=== PATIENT | male | born 2000 | race Caucasian/White ===

== ENCOUNTER 2021-04-06 01:19 | Emergency (ER) | payer OTHER ==
[~2021-04-06] VITALS: Ht 188 cm; Wt 75.0 kg
[2021-04-06 01:30] VITALS: TEMP 97.7
[2021-04-06 02:22] LABS: COLLECTION METHOD CLEAN CATCH
[2021-04-06 02:29] LABS: PH 6 (5-8); SQUAMOUS EPITHELIAL None Seen /hpf; URINE APPEARANCE Clear; URINE BACTERIA None Seen /hpf; URINE BILIRUBIN Negative (NEGATIVE); URINE BLOOD Negative (NEGATIVE); URINE COLOR Colorless; URINE GLUCOSE Negative (NEGATIVE); URINE KETONE Negative (NEGATIVE); URINE LEUKOCYTE ESTERASE Negative (NEGATIVE); URINE NITRATE Negative (NEGATIVE); URINE PROTEIN(semi-quant) Negative (NEGATIVE); URINE RBC 0-2 /hpf; URINE UROBILINOGEN Negative (NEGATIVE); URINE WBC None Seen /hpf
[2021-04-06] MEDS ORDERED: MOTRIN 600600 MG/TAB PO (02:52)
[2021-04-06] MEDS ORDERED: ZOFRAN ODT4 MG PO (02:52)
[2021-04-06] MEDS ORDERED: DOXYCYCLINE 10100 MG PO (02:52)
[2021-04-06] MEDS ORDERED: TYLENOL 325MG325 MG PO (02:52)
[2021-04-06 03:20] VITALS: BP 130/68; PULSE 80
== END 2021-04-06 03:32 | disposition home or self-care (01) ==
LOC: COL.ER 01:19
PROVIDERS: Emergency Medicine
DX: N45.1 Epididymitis (principal)
CPT/HCPCS: J0696; J1885

== ENCOUNTER 2021-04-16 16:44 | Emergency (ER) | payer OTHER ==
[~2021-04-16] VITALS: Ht 188 cm; Wt 77.3 kg
[~2021-04-16 16:44] MED LIST: DOXYCYCLINE 10100 MG PO; MOTRIN 600600 MG/TAB PO; TYLENOL 325MG325 MG PO; ZOFRAN ODT4 MG PO
[2021-04-16 17:30] LABS: BASO % 0.3 % (0.0-2.0); EOS # 0.1 (0.0-0.7); GRAN # 3.6 (1.4-6.5); GRAN % 53.9 % (42.2-75.2); HEMATOCRIT 40.8 % (36.0-47.0); HEMOGLOBIN 14.3 g/dl (12.5-16.1); LYMPH # 2.5 (1.2-3.4); MEAN CELL VOLUME 90 fl (80.0-95.0); MEAN CORPUSCULAR HEMOGLOBIN 32 pg (26.0-32.0); MEAN CORPUSCULAR HGB CONC 35 g/dl (33.0-37.0); MEAN PLATELET VOLUME 10.5 fl (7.4-10.4); MONO # 0.5 (0.1-0.6); MONO % 7.5 % (1.7-9.3); PLATELET COUNT 239 K/mm3 (130-400); RED BLOOD COUNT 4.53 M/mm3 (4.20-5.60); REDCELL DISTRIBUTION WIDTH-CV 12.3 % (11.5-14.5)
[2021-04-16 17:55] LABS: ALBUMIN 4.3 gm/dL (3.5-5.0); BILIRUBIN,TOTAL 0.7 mg/dL (0.0-1.0); CALCIUM 9.4 mg/dL (8.4-10.2); CREATININE, serum 0.94 (0.66-1.25); POTASSIUM 3.5 mmol/L (3.4-5.0); TOTAL PROTEIN 7.6 gm/dL (6.4-8.2)
[2021-04-16] MEDS ORDERED: ATIVAN 0.50.5 MG/TAB PO (19:58)
[2021-04-16 20:22] VITALS: BP 133/87; PULSE 91; TEMP 98
== END 2021-04-16 20:22 | disposition home or self-care (01) ==
LOC: COL.ER 16:44
PROVIDERS: Nurse Practitioner
DX: F41.9 Anxiety disorder, unspecified (principal)